=== PATIENT | female | born 1980 | race Caucasian/White ===

== ENCOUNTER 2022-09-21 11:41 | Day surgery (SDC) | payer BC ==
[~2022-09-21] VITALS: Ht 167.6 cm; Wt 74.0 kg
[2022-09-21] MEDS ORDERED: QUDEXY XR150 MG PO (12:25)
[2022-09-21] MEDS ORDERED: WELLBUTRIN SR200 MG PO (12:26)
[2022-09-21] MEDS ORDERED: ZYRTEC 10MG10 MG PO (12:28)
[2022-09-21] MEDS ORDERED: LASIX 20MG TABL20 MG PO (12:28)
[2022-09-21] MEDS ORDERED: SINGULAIR 110 MG/TAB PO (12:29)
[2022-09-21] MEDS ORDERED: FLEXERIL 1010 MG/TAB PO ×2 (12:29)
[2022-09-21] MEDS ORDERED: ADVIL200 MG PO (12:30)
[2022-09-21] MEDS ORDERED: CENTRUM1 TA1 PO (12:30)
[2022-09-21 12:40] VITALS: BP 135/94; PULSE 97; TEMP 97.6
[2022-09-21 13:25] VITALS: BP 107/78; PULSE 87; TEMP 97.6
--- NOTE | 2022-09-21 13:25 | NUR ---
1325 PATIENT RETURNS TO ROOM 9 VIA CART. PATIENT STATES THAT SHE NEEDS TO USE THE RESTROOM. PATIENT IS ASSISTED TO THE RESTROOM WITH THE ASSISTANCE OF 2 NURSES. PATIENT WALKS WITH A STEADY GAIT. PATIENT ASSISTED BACK TO ROOM WHEN FINISHED. VITAL SIGNS OBTAINED. RESPIRATIONS EVEN AND UNLABORED. PATIENT IS IN ROOM. 1330 PATIENT REQUESTED A PEPSI. NO DIFFICULTIES SWALLOWING. 1335 DISCONTINUE IV FROM RIGHT HAND WITH NO DIFFICULTIES. 1345 DISCHARGE INSTRUCTIONS REVIEWED. BOTH PATIENT AND PATIENT VERBALIZED UNDERSTANDING. 1350 PATIENT DRESSES SELF. 1435 DOCTOR IN TO SPEAK WITH PATIENT. 1440 PATIENT DISCHARGES FROM UNIT VIA WHEELCHAIR.
[2022-09-21 13:40] VITALS: BP 111/83; PULSE 83
[2022-09-21 13:55] VITALS: BP 115/85; PULSE 75
== END 2022-09-21 14:40 | disposition home or self-care (01) ==
LOC: SDCO 11:41
DX: D12.5 Benign neoplasm of sigmoid colon (principal); K59.00 Constipation, unspecified; R19.7 Diarrhea, unspecified
CPT/HCPCS: J3010; J7120